=== PATIENT | female | born 1965 | race Caucasian/White ===

== ENCOUNTER → 2019-10-20 | Outpatient (CLI) | payer BC, OTHER ==
--- NOTE | 2019-10-20 14:15 | Diagnostic Imaging Report ---
EXAMINATION: CHEST 2 VIEWS INDICATION: Bronchitis. COMPARISON: None FINDINGS: TUBES and LINES: None. LUNGS: Lungs are hyperinflated. There is no evidence of pneumonia or pulmonary edema. Mild bronchial wall thickening. PLEURA: No pleural effusion or pneumothorax. HEART AND MEDIASTINUM: The cardiomediastinal silhouette is unremarkable. There are atherosclerotic calcifications within the aorta. BONES AND SOFT TISSUES: No acute osseous lesion. Soft tissues are unremarkable. UPPER ABDOMEN: No free air under the diaphragm. IMPRESSION: Hyperinflated lungs. Mild bronchial wall thickening, which may reflect bronchitis. No evidence of pneumonia. Signed by: Dr. Alissa Diane MD on 10/20/2019 2:12 PM
== END ==
LOC: RAD 13:04
PROVIDERS: ATTEND General Practice
DX: J20.9 Acute bronchitis, unspecified (principal)
CPT/HCPCS: 71046